=== PATIENT | female | born 1990 | race African-American/Black ===

== ENCOUNTER 2021-10-20 14:58 | Emergency (ER) | payer OTHER ==
[~2021-10-20] VITALS: Ht 167.6 cm; Wt 150.3 kg
[2021-10-20] MEDS ORDERED: HYDROCODONE/APAP 5MG-325MG TAB PO ONE (15:30)
[2021-10-20] MEDS ORDERED: AUGMENTIN 500-1 EACH PO (15:30)
[2021-10-20] MEDS ORDERED: ONDANSETRON HCL 4 MG ORAL DISINTEGRATING TAB PO ONE (15:45)
[2021-10-20] MEDS ORDERED: ONDANSETRON HCL 4 MG ORAL DISINTEGRATING TAB ONE (15:58)
[2021-10-20] MEDS ORDERED: HYDROCODONE/APAP 5MG-325MG TAB ONE (15:58)
== END 2021-10-20 16:07 | disposition home or self-care (01) ==
LOC: FSED 15:28
DX: K08.89 Other specified disorders of teeth and supporting structures (principal)
CPT/HCPCS: 99283; Q0162